=== PATIENT | male | born 1970 | race Caucasian/White ===

== ENCOUNTER 2017-10-04 17:49 | Emergency (ER) | payer BC ==
[~2017-10-04] VITALS: Ht 182.9 cm; Wt 133.5 kg
[2017-10-04 17:55] VITALS: TEMP 36.7; Ht 182.9 cm; Wt 133.5 kg
--- NOTE | 2017-10-04 18:20 | EMERGENCY ROOM VISIT NOTE ---
History Report prepared by Neeraj: Brandon Chester Under the Supervision of: Dr. Bogdan Moralez M.D. First contact with patient: 17:59 Chief Complaint: CARDIAC ASSESSMENT Stated Complaint: ELEVATED HEART RATE History of Present Illness The patient is a 47 year old male with a past medical history of GERD and hernias who presents to the ED with a cc of an episode of hypertension beginning 45 minutes ago. Positive for lightheadedness, abdominal pain, and vomiting. Negative for nausea and bloody stools. The patient states that he had a stress test and echo done recently that came back normal. He notes that he does have a lot of stress in his life that has remained fairly constant. He reports that his last bowel movement was today and that it was looser than usual. The patient states that he takes omeprazole and metoprolol as needed. Source of History: patient Onset: 45 minutes ago Position: other (global) Symptom Intensity: mild Quality: other (hypertension) Timing: intermittent Associated Symptoms: + vomiting, + abdominal pain, No nausea Note: The patient also complains of lightheadedness. He denies any bloody stools. Review of Systems See HPI for pertinent positives and negatives. A total of ten systems were reviewed and were otherwise negative. Past Medical & Surgical Medical Problems: (1) GERD (gastroesophageal reflux disease) (2) Umbilical hernia Family History No pertinent family history stated. Social History Smoking Status: Current Some Day Smoker Alcohol Use: none Marital Status: Housing Status: lives with family Occupation Status: employed Current/Historical Medications Scheduled Metoprolol Tartrate (Lopressor) (Lopressor), 25 MG PO PRN Omeprazole (Prilosec), 40 MG PO DAILY Scheduled PRN Ibuprofen (Advil), 600 MG PO Q6H PRN for Pain Ranitidine Hcl (Zantac), 150 MG PO BID PRN for ACID REFLUX Allergies Coded Allergies: No Known Allergies (Unverified , 10/04/17) Physical Exam Vital Signs Date Time Temp Pulse Resp B/P (MAP) Pulse Ox O2 Delivery O2 Flow Rate FiO2 10/04/17 22:13 78 20 126/71 98 Room Air 10/04/17 20:16 83 20 130/82 96 Room Air 10/04/17 19:09 84 20 140/79 94 Room Air 10/04/17 18:43 83 17 133/82 93 Room Air 10/04/17 18:42 93 Room Air 10/04/17 18:42 93 Room Air 10/04/17 18:10 98 10/04/17 17:55 36.7 101 20 156/90 95 Room Air Physical Exam GENERAL: Awake, alert, well-appearing, NAD HENT: Normocephalic, atraumatic. EYES: Normal conjunctiva. Sclera non-icteric. NECK: Supple. No nuchal rigidity. FROM. RESPIRATORY: CTAB, no rhonchi, wheezing, crackles CARDIAC: RRR, no MRG ABDOMEN: Soft, ND, BS+, umbilical hernia that is reducible, mild discomfort MSK: No chest wall TTP, no LE edema NEURO: GCS 15, CN 2-12 intact, moves all 4s on command SKIN: No rash or jaundice noted. Medical Decision & Procedures ER Provider Diagnostic Interpretation: Radiology results as stated below per my review and radiologist interpretation: ABDOMEN AND PELVIS CT WITH IV CONTRAST FINDINGS: Indeterminate 3 mm nodule of the inferior segment lingula. Mild dependent subsegmental bibasilar atelectasis. Additional 3 mm nodule of the left lower lobe as seen on image 48 series 3. No pneumatosis or pneumoperitoneum. Imaged inferior cardiac chambers are unremarkable. Liver, gallbladder, spleen, pancreas and adrenal glands are within normal limits. Mild nonspecific bilateral perinephric stranding. Probable renal sinus cysts of the left kidney measures 10 mm. No renal calculi or obstructive uropathy. The ureters and urinary bladder are within normal limits. Small fat filled left inguinal hernia. Aorta is normal in course and caliber without aneurysm. There is no bulky adenopathy identified. No bowel obstruction or focal bowel wall thickening. Ovoid centrally fatty attenuating 9 mm structure of the left lower quadrant adjacent to the descending sigmoid junction, image 369 series 3 suggests subacute or chronic area of epiploic appendagitis without significant surrounding inflammatory stranding. No significant colonic diverticulosis or diverticulitis. Normal appendix. Small fat filled periumbilical hernia is noted, diastases 2.5 cm with mild associated fat stranding. Diastases recti is also noted. Soft tissues are otherwise unremarkable. The bones appear to be intact. IMPRESSION: 1. 2.5 cm fat filled periumbilical hernia demonstrates mild associated inflammatory stranding. 2. No bowel obstruction or focal bowel wall thickening. 3. Normal appendix. 4. Indeterminate likely benign solid nodules of the left lung base measure up to 3 mm. Electronically signed by: Bassem Hickey M.D. 10/04/2017 8:38 PM CHEST ONE VIEW PORTABLE FINDINGS: Cardiomediastinal and hilar silhouettes are within normal limits. No pneumothorax, pleural effusion, focal airspace consolidation or overt pulmonary edema. Mild degenerative changes of the AC joints. IMPRESSION: No acute process. The above report was generated using voice recognition software. It may contain grammatical, syntax or spelling errors. Electronically signed by: Bassem Hickey M.D. 10/04/2017 6:46 PM Laboratory Results 10/04/17 18:34 Red Blood Count 5.48, Mean Corpuscular Volume 80.3, Mean Corpuscular Hemoglobin 29.0, Mean Corpuscular Hemoglobin Concent 36.1, Mean Platelet Volume 10.8, Neutrophils (%) (Auto) 65.7, Lymphocytes (%) (Auto) 25.2, Monocytes (%) (Auto) 7.1, Eosinophils (%) (Auto) 1.1, Basophils (%) (Auto) 0.3, Neutrophils # (Auto) 5.85, Lymphocytes # (Auto) 2.24, Monocytes # (Auto) 0.63, Eosinophils # (Auto) 0.10, Basophils # (Auto) 0.03 10/04/17 18:34 Test 10/04/17 18:34 10/04/17 18:40 10/04/17 19:21 White Blood Count 8.90 K/uL (4.8-10.8) Red Blood Count 5.48 M/uL (4.7-6.1) Hemoglobin 15.9 g/dL (14.0-18.0) Hematocrit 44.0 % (42-52) Mean Corpuscular Volume 80.3 fL (80-100) Mean Corpuscular Hemoglobin 29.0 pg (25-34) Mean Corpuscular Hemoglobin Concent 36.1 g/dl (32-36) Platelet Count 240 K/uL (130-400) Mean Platelet Volume 10.8 fL (7.4-10.4) Neutrophils (%) (Auto) 65.7 % Lymphocytes (%) (Auto) 25.2 % Monocytes (%) (Auto) 7.1 % Eosinophils (%) (Auto) 1.1 % Basophils (%) (Auto) 0.3 % Neutrophils # (Auto) 5.85 K/uL (1.4-6.5) Lymphocytes # (Auto) 2.24 K/uL (1.2-3.4) Monocytes # (Auto) 0.63 K/uL (0.11-0.59) Eosinophils # (Auto) 0.10 K/uL (0-0.5) Basophils # (Auto) 0.03 K/uL (0-0.2) RDW Standard Deviation 35.6 fL (36.4-46.3) RDW Coefficient of Variation 12.3 % (11.5-14.5) Immature Granulocyte % (Auto) 0.6 % Immature Granulocyte # (Auto) 0.05 K/uL (0.00-0.02) Anion Gap 9.0 mmol/L (3-11) Est Creatinine Clear Calc Drug Dose 111.6 ml/min Estimated GFR () 86.1 Estimated GFR (Non- 74.3 BUN/Creatinine Ratio 8.0 (10-20) Calcium Level 8.6 mg/dl (8.5-10.1) Magnesium Level 2.1 mg/dl (1.8-2.4) Total Bilirubin 0.5 mg/dl (0.2-1) Direct Bilirubin 0.1 mg/dl (0-0.2) Aspartate Amino Transf (AST/SGOT) 20 U/L (15-37) Alanine Aminotransferase (ALT/SGPT) 37 U/L (12-78) Alkaline Phosphatase 90 U/L (45-117) Total Protein 7.9 gm/dl (6.4-8.2) Albumin 3.7 gm/dl (3.4-5.0) Lipase 152 U/L (73-393) Thyroid Stimulating Hormone (TSH) 0.753 uIu/ml (0.300-4.500) Bedside Troponin I < 0.030 ng/ml (0-0.045) Urine Color YELLOW Urine Appearance CLEAR (CLEAR) Urine pH 5.5 (4.5-7.5) Urine Specific [place] 1.006 (1.000-1.030) Urine Protein NEG (NEG) Urine Glucose (UA) NEG (NEG) Urine Ketones NEG (NEG) Urine Occult Blood NEG (NEG) Urine Nitrite NEG (NEG) Urine Bilirubin NEG (NEG) Urine Urobilinogen NEG (NEG) Urine Leukocyte Esterase NEG (NEG) Laboratory results reviewed by me ECG Per My Interpretation Indication: tachycardia Rate (beats per minute): 96 Rhythm: normal sinus Findings: other (Normal intervals, normal axis, no STS changes or TWI) ED Course 1807: The patient was evaluated in room C9. A complete history and physical exam was performed. 2200 Discussed the patient's case. He states that the patient should not do any heavy lifting and that there is no need for inpatient treatment or surgery. 2230: I reevaluated the patient. Discussed results and discharge instructions: He verbalized understanding and agreement. The patient is ready for discharge. Medical Decision The patient is a 47 year old male with a past medical history of GERD and hernias who presents to the ED with a cc of an episode of hypertension beginning 45 minutes ago. Positive for lightheadedness, abdominal pain, and vomiting. Negative for nausea and bloody stools. Differential diagnosis: Etiologies such as musculoskeletal, disc herniation, fracture, aortic disease, metastatic disease, cord compression, discitis, infection, renal colic, gastrointestinal, acute exacerbation of chronic back pain, sciatica, cauda equina, as well as others were entertained. Patient was seen and evaluated at the bedside. 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 Patient states that he is noted that he has had some tachycardia. He measured in the 1 teens today. Patient denies any chest pains or shortness of breath. Patient states he has been seen by shuttle operator and had a negative stress test as well as normal echocardiogram per his own knowledge. Patient denies any prior history of DVT or PE. Patient denies any lower extremity swelling. Patient also feels as though he has some increased stress with work in addition to be concerned about an umbilical hernia which he has. Patient is scheduled to have a CT of the abdomen pelvis completed on Sunday. On exam the patient is not tachycardic. The patient not tachypneic. Patient does have an umbilical hernia which does have pain with reduction. Given this concern the patient did have a CT of the abdomen pelvis completed. Patient also did have blood work to further evaluate his tachycardia. Patient states that he did take metoprolol prior to arrival because he has it in case he notices his heart rate is elevated. Patient's EKG was nonischemic. Patient had was not anemic. Normal TSH. Patient had negative troponin. Patient chest x-ray clear. Patient did have a CT of the abdomen pelvis which did show a little bit of fat stranding but only fat-containing umbilical hernia. I did speak with the on-call general surgeon to come by to evaluate the patient. They do believe that he should not participate in any heavy lifting or straining. No need for any surgery or a hospitalization at this time. Patient was given strict follow-up, discharge, and return precautions. All questions were answered. Patient was deemed suitable for outpatient follow-up at this time. Patient agreed with the plan of care and was safely discharged home. Head Trauma GCS Score: 15 Blood Pressure Screening Patient's blood pressure: Normal blood pressure Blood pressure disposition: Did not require urgent referral Consults Time Called: 2106 Consulting Physician: Omar Cortes - General Surgery TONY DONALDSON Returned Call: 2200 Discussed the patient's case. He states that the patient should not do any heavy lifting and that there is no need for inpatient treatment or surgery. Impression Primary Impression: Palpitations Additional Impression: Umbilical hernia Scribe Attestation The scribe's documentation has been prepared under my direction and personally reviewed by me in its entirety. I confirm that the note above accurately reflects all work, treatment, procedures, and medical decision making performed by me. Departure Information Dispostion Home / Self-Care Referrals No Doctor, Assigned (PCP) Forms IMPORTANT VISIT INFORMATION Patient Instructions ED Palpitations, Hernia, [facility] Additional Instructions Please return to the emergency department if you have worsening or recurrent symptoms not amenable to at-home treatment. Please call for a follow-up appointment with her primary care physician. Please take your medications as prescribed. If you have other concerns and/or complaints please feel free to also call your primary care physician's office or return the ED for further evaluation, management, and treatment. You may take 600 mg Ibuprofen every 6 hours as needed for pain with food for no more than 2 consecutive days. You may take tylenol 1000 mg every 6 hours as needed for pain. You may take motrin and tylenol separately or at the same time. Take your medications as prescribed. Please follow-up with your shuttle operator as well as her camera technician. You have been examined and treated today on an emergency basis only. This is not a substitute for, or an effort to provide, complete comprehensive medical care. It is impossible to recognize and treat all injuries or illnesses in a single emergency department visit. It is therefore important that you follow up closely with [facility], your PCP, and/or your specialist(s). Call as soon as possible for an appointment. Thank you for your time and consideration. I look forward to speaking with you again soon. Please don't hesitate to call us if you have any questions. Problem Qualifiers Additional Impression: Umbilical hernia Obstruction and gangrene presence: without obstruction or gangrene Qualified Codes: K42.9 - Umbilical hernia without obstruction or gangrene
[2017-10-04 18:42] VITALS: O2SAT 93
[2017-10-04 18:45] LABS: BASO % 0.3 %; BASO ABS # 0.03 K/uL (0-0.2); EOS % 1.1 %; HEMOGLOBIN 15.9 g/dL (14.0-18.0); IG# 0.05 K/uL (0.00-0.02); LYMPH % 25.2 %; LYMPH ABS # 2.24 K/uL (1.2-3.4); MEAN CELL VOLUME 80.3 fL (80-100); MEAN CORPUSCULAR HGB CONC 36.1 g/dl (32-36); MEAN PLATELET VOLUME 10.8 fL (7.4-10.4); MONO % 7.1 %; MONO ABS # 0.63 K/uL (0.11-0.59); NEUT % 65.7 %; NEUT ABS # 5.85 K/uL (1.4-6.5); PLATELET COUNT 240 K/uL (130-400); RED CELL DISTRIBUTION WIDTH CV 12.3 % (11.5-14.5); RED CELL DISTRIBUTION WIDTH SD 35.6 fL (36.4-46.3)
[2017-10-04] MEDS ORDERED: OPTIRAY 320 IV PRN (18:45)
--- NOTE | 2017-10-04 18:48 | DIAGNOSTIC IMAGING REPORT ---
CHEST ONE VIEW PORTABLE HISTORY: 47 years-old Male tachycardia acute tachycardia COMPARISON: None available TECHNIQUE: Portable AP view of the chest FINDINGS: Cardiomediastinal and hilar silhouettes are within normal limits. No pneumothorax, pleural effusion, focal airspace consolidation or overt pulmonary edema. Mild degenerative changes of the AC joints. IMPRESSION: No acute process. The above report was generated using voice recognition software. It may contain grammatical, syntax or spelling errors. Electronically signed by: Bassem Hickey M.D. 10/04/2017 6:46 PM Dictated Date/Time: 10/04/2017 6:45 PM
[2017-10-04] MEDS ORDERED: OMEP40CA41 PO (19:15)
[2017-10-04] MEDS ORDERED: RANI150T3 PO (19:15)
[2017-10-04] MEDS ORDERED: IBUP-1050 PO (19:15)
[2017-10-04] MEDS ORDERED: METO25TA56 PO (19:15)
[2017-10-04 19:21] LABS: ALBUMIN 3.7 gm/dl (3.4-5.0); CALCIUM 8.6 mg/dl (8.5-10.1); POTASSIUM 3.6 mmol/L (3.5-5.1)
[2017-10-04 19:32] LABS: TOTAL PROTEIN 7.9 gm/dl (6.4-8.2)
[2017-10-04 19:52] LABS: CREATININE 1.17 mg/dl (0.60-1.40)
--- NOTE | 2017-10-04 20:39 | DIAGNOSTIC IMAGING REPORT ---
ABDOMEN AND PELVIS CT WITH IV CONTRAST CT DOSE: 1548.71 mGy.cm HISTORY: Acute periumbilical pain with periumbilical hernia umbilical hernia, TTP over area upon reduction TECHNIQUE: Multiaxial CT images of the abdomen and pelvis were performed following the use of intravenous contrast. A dose lowering technique was utilized adhering to the principles of ALARA. COMPARISON STUDY: Chest radiograph of same day. FINDINGS: Indeterminate 3 mm nodule of the inferior segment lingula. Mild dependent subsegmental bibasilar atelectasis. Additional 3 mm nodule of the left lower lobe as seen on image 48 series 3. No pneumatosis or pneumoperitoneum. Imaged inferior cardiac chambers are unremarkable. Liver, gallbladder, spleen, pancreas and adrenal glands are within normal limits. Mild nonspecific bilateral perinephric stranding. Probable renal sinus cysts of the left kidney measures 10 mm. No renal calculi or obstructive uropathy. The ureters and urinary bladder are within normal limits. Small fat filled left inguinal hernia. Aorta is normal in course and caliber without aneurysm. There is no bulky adenopathy identified. No bowel obstruction or focal bowel wall thickening. Ovoid centrally fatty attenuating 9 mm structure of the left lower quadrant adjacent to the descending sigmoid junction, image 369 series 3 suggests subacute or chronic area of epiploic appendagitis without significant surrounding inflammatory stranding. No significant colonic diverticulosis or diverticulitis. Normal appendix. Small fat filled periumbilical hernia is noted, diastases 2.5 cm with mild associated fat stranding. Diastases recti is also noted. Soft tissues are otherwise unremarkable. The bones appear to be intact. IMPRESSION: 1. 2.5 cm fat filled periumbilical hernia demonstrates mild associated inflammatory stranding. 2. No bowel obstruction or focal bowel wall thickening. 3. Normal appendix. 4. Indeterminate likely benign solid nodules of the left lung base measure up to 3 mm. Electronically signed by: Bassem Hickey M.D. 10/04/2017 8:38 PM Dictated Date/Time: 10/04/2017 8:28 PM
[2017-10-04 22:13] VITALS: BP 126/71; PULSE 78; O2SAT 98
--- NOTE | 2017-10-04 22:19 | Surgery Consultation ---
Consultation Date of Consultation: Oct 04, 2017. 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 He is originally from the [facility]. He presents to the ED tonight due to an episode of tachycardia with a history of hypertension. He notes that he does have an umbilical hernia which has been causing him some pain and he is currently scheduled to have a CT to evaluate this further on Sunday per his GI doctor. Reports that he has had the hernia for a few years but it only recently began causing him some discomfort this past Sunday when he had an episode of coughing. A CT was performed in the ED this evening showing a 2.5 cm fat- containing umbilical hernia with mild associated inflammatory stranding. Denies nausea/vomiting at this time. Reports his last BM earlier today was a little loose but denies any other problems moving his bowels. WBC WNL. He does note that tomorrow is the last day of his training and then he will be returning home. (Omar Cortes PA-C) Past Medical/Surgical History Medical Problems: (1) Palpitations Status: Acute (Omar Cortes PA-C) Social History Smoking Status: Current Some Day Smoker Marital Status: Housing Status: lives with family Occupation Status: employed (Omar Cortes PA-C) Allergies Coded Allergies: No Known Allergies (Unverified , 10/04/17) Home Medications Scheduled Metoprolol Tartrate (Lopressor) (Lopressor), 25 MG PO PRN Omeprazole (Prilosec), 40 MG PO DAILY Scheduled PRN Ibuprofen (Advil), 600 MG PO Q6H PRN for Pain Ranitidine Hcl (Zantac), 150 MG PO BID PRN for ACID REFLUX Current Inpatient Medications Current Inpatient Medications Medications (Trade) Dose Ordered Sig/Viviana Route Start Time Stop Time Status Last Admin Dose Admin Ioversol (Optiray 320) 100 ml UD PRN IV 10/04/17 18:45 10/08/17 18:44 (Omar Cortes PA-C) Review of Systems Constitutional: No fever, No chills Respiratory: No cough, No shortness of breath Cardiovascular: No chest pain Abdomen: + pain (Reports umbilical tenderness to palpation. Denies pain with movement or at rest. ), + diarrhea (Loose BM earlier today), No nausea, No vomiting, No constipation Genitourinary - Male: No hematuria, No dysuria Integumentary: No color change (Omar Cortes PA-C) Physical Exam Date Time Temp Pulse Resp B/P (MAP) Pulse Ox O2 Delivery O2 Flow Rate FiO2 10/04/17 20:16 83 20 130/82 96 Room Air 10/04/17 19:09 84 20 140/79 94 Room Air 10/04/17 18:43 83 17 133/82 93 Room Air 10/04/17 18:42 93 Room Air 10/04/17 18:42 93 Room Air 10/04/17 18:10 98 10/04/17 17:55 36.7 101 20 156/90 95 Room Air General Appearance: WD/WN, no apparent distress Head: normocephalic, atraumatic ENT: hearing grossly normal Abdomen/GI: normal bowel sounds, soft, no organomegaly, no pulsatile mass, + tenderness (mild-mod TTP over site of umbilical hernia. Partially reducible on exam.) Neurologic/Psych: alert, normal mood/affect, oriented x 3 Skin: normal color, warm/dry (Omar Cortes PA-C) Laboratory Results Last 24 Hours Test 10/04/17 18:34 10/04/17 18:40 10/04/17 19:21 White Blood Count 8.90 K/uL Red Blood Count 5.48 M/uL Hemoglobin 15.9 g/dL Hematocrit 44.0 % Mean Corpuscular Volume 80.3 fL Mean Corpuscular Hemoglobin 29.0 pg Mean Corpuscular Hemoglobin Concent 36.1 g/dl Platelet Count 240 K/uL Mean Platelet Volume 10.8 fL Neutrophils (%) (Auto) 65.7 % Lymphocytes (%) (Auto) 25.2 % Monocytes (%) (Auto) 7.1 % Eosinophils (%) (Auto) 1.1 % Basophils (%) (Auto) 0.3 % Neutrophils # (Auto) 5.85 K/uL Lymphocytes # (Auto) 2.24 K/uL Monocytes # (Auto) 0.63 K/uL Eosinophils # (Auto) 0.10 K/uL Basophils # (Auto) 0.03 K/uL RDW Standard Deviation 35.6 fL RDW Coefficient of Variation 12.3 % Immature Granulocyte % (Auto) 0.6 % Immature Granulocyte # (Auto) 0.05 K/uL Sodium Level 134 mmol/L Potassium Level 3.6 mmol/L Chloride Level 101 mmol/L Carbon Dioxide Level 24 mmol/L Anion Gap 9.0 mmol/L Blood Urea Nitrogen 9 mg/dl Creatinine 1.17 mg/dl Est Creatinine Clear Calc Drug Dose 111.6 ml/min Estimated GFR () 86.1 Estimated GFR (Non- 74.3 BUN/Creatinine Ratio 8.0 Random Glucose 138 mg/dl Calcium Level 8.6 mg/dl Magnesium Level 2.1 mg/dl Total Bilirubin 0.5 mg/dl Direct Bilirubin 0.1 mg/dl Aspartate Amino Transf (AST/SGOT) 20 U/L Alanine Aminotransferase (ALT/SGPT) 37 U/L Alkaline Phosphatase 90 U/L Total Protein 7.9 gm/dl Albumin 3.7 gm/dl Lipase 152 U/L Thyroid Stimulating Hormone (TSH) 0.753 uIu/ml Bedside Troponin I < 0.030 ng/ml Urine Color YELLOW Urine Appearance CLEAR Urine pH 5.5 Urine Specific [place] 1.006 Urine Protein NEG Urine Glucose (UA) NEG Urine Ketones NEG Urine Occult Blood NEG Urine Nitrite NEG Urine Bilirubin NEG Urine Urobilinogen NEG Urine Leukocyte Esterase NEG (Omar Cortes, DHIRAJC) Assessment & Plan fat containing umbilical hernia TTP over umbilical hernia site, partially reducible. No N/V. No swelling or erythema at hernia site. No acute surgical intervention indicated at this time. Recommend patient contact his PCP and GI doctor to coordinate F/U with a surgeon back home to consider surgical repair options. Patient advised to return to the ED if he develops severe pain/swelling at the hernia site, nausea, vomiting or the inability to move his bowels. Findings discussed with Dr Andrew and Dr. Moralez. Please contact with questions or concerns. (Omar Cortes, PAAletheaC) Called by Omar Cortes to discuss pt. Pt not examined. Reviewed all studies and reports including CT scan and evaluation by Dr Moralez. Pt has umbilical hernia with adipose tissue- no fluid or inflammation. Reducible but uncomfortable- not unusual with these hernias. This can be repaired electively- does not require urgent surgical care. (Juan Manuel Andrew M.D.)
== END 2017-10-04 22:18 | disposition home or self-care (01) ==
LOC: C.EDB 17:51 → C.EDC 22:18
DX: R00.2 Palpitations (principal); K42.9 Umbilical hernia without obstruction or gangrene; K21.9 Gastro-esophageal reflux disease without esophagitis; F17.210 Nicotine dependence, cigarettes, uncomplicated; Z79.899 Other long term (current) drug therapy